=== PATIENT | male | born 1940 | race Caucasian/White ===

== ENCOUNTER → 2019-04-05 | Outpatient (CLI) | payer MEDICARE, BC ==
[~2019-04-05] MED LIST: ASPI-496 PO; ATOR20TA PO; CARV3.122 PO; CHOL200074 PO; FOLI-17 PO; L. A1CAP8 PO; LOSA25TA25 PO; MAGNESIUM OXIDE PO; MULT-717 PO; NIAC10002 PO; OMEG1CAP6 PO; OMEP-110 PO; TRAZ150T62 PO; VITA1TAB19 PO; VITA400C43 PO; VITAMIN B 12 PO
== END | disposition home or self-care (01) ==
LOC: CVU 09:46
PROVIDERS: ATTEND Internal Medicine Cardiovascular Disease
DX: I65.23 Occlusion and stenosis of bilateral carotid arteries (principal); E78.2 Mixed hyperlipidemia; I10 Essential (primary) hypertension; R09.89 Other specified symptoms and signs involving the circulatory and respiratory systems; Z87.891 Personal history of nicotine dependence
CPT/HCPCS: 93880

== ENCOUNTER 2020-09-01 07:30 | Inpatient (IN) | payer MEDICARE, BC ==
[2020-08-30 08:49] LABS: BASOPHILS % (AUTO) 1 % (0-1); EOSINOPHILS % (AUTO) 1 % (1-7); LYMPHOCYTES % (AUTO) 14 % (22-44); MEAN CORPUSCULAR HEMOGLOBIN 31.8 pg (27.5-34.5); MEAN PLATELET VOLUME 8.5 fL (7.4-10.4); MONOCYTES % (AUTO) 9 % (2-9); NEUTROPHILS % (AUTO) 76 % (42-75); PLATELET COUNT 243 x10^3/uL (130-400); RED BLOOD COUNT 4.47 x10^6/uL (4.38-5.82)
[2020-08-30 09:00] LABS: ALANINE AMINOTRANSFERASE 23 U/L (12-78); ALBUMIN 3.6 g/dL (3.4-5.0); ANION GAP 4 mmol/L (5-15); CHLORIDE 107 mmol/L (98-107); CREATININE 0.88 mg/dL (0.7-1.3)
[2020-08-30 09:03] LABS: ALKALINE PHOSPHATASE 73 U/L (45-117); BILIRUBIN,TOTAL 0.4 mg/dL (0.2-1.0); TOTAL PROTEIN 7.2 g/dL (6.4-8.2)
[~2020-09-01] VITALS: Ht 172.7 cm; Wt 87.0 kg
[~2020-09-01 07:30] MED LIST changes: +CYAN25009 PO; -FOLI-17 PO; +FOLI1TAB32 PO; +MAGN500C9 PO; +METO25TA91 PO
[2020-09-06] MEDS ORDERED: VANCOMYCIN 1,000 MG ONE (08:59)
[2020-09-06] MEDS ORDERED: GENTAMICIN 80 MG/2 ML ONE (08:59)
[2020-09-06] MEDS ORDERED: THROMBIN 20,000 UNIT VIAL TP ONE (08:59)
[2020-09-06] MEDS ORDERED: BUPIVACAINE/PF 0.5% ONE (08:59)
[2020-09-06] MEDS ORDERED: HEPARIN 1,000 UNITS/ML, 10ML ONE (08:59)
[2020-09-06] MEDS ORDERED: PROTAMINE SULFATE 10 MG/ML, 5ML ONE (08:59)
[2020-09-06] MEDS ORDERED: EPINEPHRINE 1 MG/ML, 1ML ONE (08:59)
[2020-09-06] MEDS ORDERED: CEFAZOLIN 1,000 MG ONE ×2 (09:08→11:03)
[2020-09-06] MEDS ORDERED: CHLORHEXIDINE 15 ML UDC ONE (09:57)
[2020-09-06] MEDS ORDERED: LACTATED RINGERS 1,000 ML IV SCH (10:00)
[2020-09-06] MEDS ORDERED: CHLORHEXIDINE 15 ML UDC PO ONE (10:00)
[2020-09-06] MEDS ORDERED: FENTANYL PF 250 MCG/5ML ONE (10:47)
[2020-09-06] MEDS ORDERED: PROPOFOL 10 MG/ML, 20ML ONE (11:03)
[2020-09-06] MEDS ORDERED: ONDANSETRON 2MG/ML, 2ML ONE (11:03)
[2020-09-06] MEDS ORDERED: ROCURONIUM 10 MG/ML,10ML ONE (11:03)
[2020-09-06] MEDS ORDERED: METOPROLOL 1 MG/ML, 5ML ONE (11:03)
[2020-09-06] MEDS ORDERED: DEXAMETHASONE 4 MG/ML, 1ML ONE (11:03)
[2020-09-06] MEDS ORDERED: MIDAZOLAM 1 MG/ML, 2ML ONE (11:18)
[2020-09-06] MEDS ORDERED: FENTANYL PF 100 MCG/2ML ONE (14:39)
[2020-09-06] MEDS ORDERED: OXYcodone 5 MG/5 ML ORAL.SOL UDC ONE ×2 (14:39→15:00)
[2020-09-06] MEDS: FENTANYL PF 100 MCG/2ML IV PRN ×2 (14:40→14:50)
[2020-09-06] MEDS ORDERED: KETOROLAC 30 MG/1 ML IV PRN (15:00)
[2020-09-06] MEDS ORDERED: hydrALAzine 20 MG/ML, 1ML IV PRN (15:00)
[2020-09-06] MEDS ORDERED: ACETAMINOPHEN 325 MG TABLET PO PRN (15:00)
[2020-09-06] MEDS ORDERED: MEPERIDINE/PF 25MG/0.5ML IVPush PRN (15:00)
[2020-09-06] MEDS ORDERED: DIAZEPAM 5 MG/ML, 2ML IVPush PRN (15:00)
[2020-09-06] MEDS ORDERED: ALBUTEROL SULFATE 2.5 MG/3 ML NPPB PRN (15:00)
[2020-09-06] MEDS: HYDROmorphone 2 MG/ML, 1ML IVPush PRN ×3 (15:00→15:46)
[2020-09-06] MEDS ORDERED: HYDROmorphone 1 MG/ML, 1ML INJ ONE ×2 (15:00→15:45)
[2020-09-06] MEDS ORDERED: LABETALOL 5MG/ML, 20ML IV PRN (15:00)
[2020-09-06] MEDS ORDERED: PROMETHAZINE 25 MG/ML, 1ML IV PRN (15:00)
[2020-09-06] MEDS ORDERED: OXYcodone 5 MG/5 ML ORAL.SOL UDC PO PRN (15:00)
[2020-09-06] MEDS ORDERED: KETOROLAC 30 MG/1 ML ONE (15:33)
[2020-09-06 16:30] VITALS: BP 129/67
[2020-09-06] MEDS ORDERED: ONDANSETRON 2MG/ML, 2ML IV PRN (17:30)
[2020-09-06] MEDS ORDERED: TRAZODONE 150MG TABLET PO PRN (17:30)
[2020-09-06] MEDS ORDERED: LACTATED RINGERS 500 ML IV PRN (17:30)
[2020-09-06] MEDS: LACTATED RINGERS 1,000 ML IV SCH (18:10)
[2020-09-06 19:05] VITALS: BP 128/62
[2020-09-06] MEDS: OXYcodone/APAP 5/325MG TABLET PO PRN ×2 (19:08→23:08)
[2020-09-06 20:16] VITALS: BP 125/71
[2020-09-06] MEDS: MAGNESIUM OXIDE 400 MG TABLET PO SCH (20:18)
[2020-09-06] MEDS: METOPROLOL SUCCINATE 25 MG TAB.ER.24H PO SCH (20:18)
[2020-09-06] MEDS: ATORVASTATIN 40 MG TABLET PO SCH (20:18)
[2020-09-06] MEDS: FOLIC ACID 1 MG TABLET PO SCH (20:20)
[2020-09-07 00:03] VITALS: BP 126/74
[2020-09-07] MEDS: OXYcodone/APAP 5/325MG TABLET PO PRN ×5 (03:09→22:06)
[2020-09-07] MEDS: LACTATED RINGERS 1,000 ML IV SCH ×3 (03:12→22:10)
[2020-09-07 03:28] VITALS: BP 116/69
[2020-09-07] MEDS: OMEPRAZOLE 20 MG CAPSULE.DR PO SCH (05:50)
[2020-09-07] MEDS: ASPIRIN 81 MG TABLET EC PO SCH (05:50)
[2020-09-07] MEDS: HEPARIN 5,000 UNITS/ML, 1ML SQ SCH ×3 (05:50→22:07)
[2020-09-07] MEDS ORDERED: METOPROLOL SUCCINATE 25 MG TAB.ER.24H PO SCH (06:00)
[2020-09-07 07:15] VITALS: BP 117/75
[2020-09-07] MEDS: MAGNESIUM OXIDE 400 MG TABLET PO SCH ×2 (08:03→22:06)
[2020-09-07] MEDS: CHOLECALCIFEROL 1,000 UNIT TABLET PO SCH (08:03)
[2020-09-07] MEDS: NIACIN 500 MG TABLET.ER PO SCH (08:03)
[2020-09-07] MEDS: LOSARTAN 25MG TABLET PO SCH (08:04)
[2020-09-07] MEDS: MULTIVITS,STRESS FORMULA 1 TABLET PO SCH (08:04)
[2020-09-07] MEDS: MULTIVITAMINS/MINERALS TABLET PO SCH (08:04)
[2020-09-07] MEDS: CYANOCOBALAMIN 1,000 MCG TABLET PO SCH (08:05)
[2020-09-07 14:20] VITALS: BP 102/61
[2020-09-07 18:45] VITALS: BP 109/62
[2020-09-07] MEDS: METOPROLOL SUCCINATE 25 MG TAB.ER.24H PO SCH (22:05)
[2020-09-07] MEDS: FOLIC ACID 1 MG TABLET PO SCH (22:06)
[2020-09-07] MEDS: ATORVASTATIN 40 MG TABLET PO SCH (22:06)
[2020-09-08 00:48] VITALS: BP 104/66
[2020-09-08] MEDS: OXYcodone/APAP 5/325MG TABLET PO PRN ×2 (04:33→09:39)
[2020-09-08] MEDS: ASPIRIN 81 MG TABLET EC PO SCH (07:17)
[2020-09-08] MEDS: OMEPRAZOLE 20 MG CAPSULE.DR PO SCH (07:17)
[2020-09-08] MEDS: HEPARIN 5,000 UNITS/ML, 1ML SQ SCH ×3 (07:17→21:38)
[2020-09-08 08:55] VITALS: BP 101/62
[2020-09-08] MEDS ORDERED: BISACODYL 10 MG SUPP PR PRN (09:30)
[2020-09-08] MEDS: LACTATED RINGERS 1,000 ML IV SCH ×2 (09:30→19:30)
[2020-09-08] MEDS ORDERED: POLYETHYLENE GLYCOL 17 GM PACKET PO PRN (09:30)
[2020-09-08] MEDS ORDERED: MAGNESIUM HYDROXIDE 8%, 30ML UDC PO PRN (09:30)
[2020-09-08] MEDS: MAGNESIUM OXIDE 400 MG TABLET PO SCH ×2 (09:37→21:36)
[2020-09-08] MEDS: MULTIVITAMINS/MINERALS TABLET PO SCH (09:37)
[2020-09-08] MEDS: CYANOCOBALAMIN 1,000 MCG TABLET PO SCH (09:37)
[2020-09-08] MEDS: CHOLECALCIFEROL 1,000 UNIT TABLET PO SCH (09:38)
[2020-09-08] MEDS: MULTIVITS,STRESS FORMULA 1 TABLET PO SCH (09:38)
[2020-09-08] MEDS: SENNA/DOCUSATE TABLET PO SCH ×2 (09:38→21:37)
[2020-09-08] MEDS: NIACIN 500 MG TABLET.ER PO SCH (09:39)
[2020-09-08] MEDS: LOSARTAN 25MG TABLET PO SCH (09:39)
[2020-09-08] MEDS: HYDROcodone/APAP 10/325 MG TABLET PO PRN ×3 (12:26→21:37)
[2020-09-08 14:25] VITALS: BP 94/56
[2020-09-08 19:41] VITALS: BP 119/66
[2020-09-08] MEDS: ATORVASTATIN 40 MG TABLET PO SCH (21:36)
[2020-09-08] MEDS: FOLIC ACID 1 MG TABLET PO SCH (21:36)
[2020-09-08] MEDS: DOCUSATE 100 MG CAPSULE PO SCH (21:36)
[2020-09-08] MEDS: METOPROLOL SUCCINATE 25 MG TAB.ER.24H PO SCH (21:36)
[2020-09-09 01:34] VITALS: BP 116/59
[2020-09-09] MEDS: HYDROcodone/APAP 10/325 MG TABLET PO PRN ×3 (02:54→13:46)
[2020-09-09] MEDS: LACTATED RINGERS 1,000 ML IV SCH (05:03)
[2020-09-09] MEDS: ASPIRIN 81 MG TABLET EC PO SCH (05:33)
[2020-09-09] MEDS: HEPARIN 5,000 UNITS/ML, 1ML SQ SCH ×2 (05:33→14:49)
[2020-09-09] MEDS: OMEPRAZOLE 20 MG CAPSULE.DR PO SCH (05:33)
[2020-09-09 07:02] VITALS: BP 129/73
[2020-09-09] MEDS: CYANOCOBALAMIN 1,000 MCG TABLET PO SCH (09:23)
[2020-09-09] MEDS: NIACIN 500 MG TABLET.ER PO SCH (09:28)
[2020-09-09] MEDS: SENNA/DOCUSATE TABLET PO SCH (09:28)
[2020-09-09] MEDS: DOCUSATE 100 MG CAPSULE PO SCH (09:28)
[2020-09-09] MEDS: LOSARTAN 25MG TABLET PO SCH (09:28)
[2020-09-09] MEDS: MULTIVITS,STRESS FORMULA 1 TABLET PO SCH (09:28)
[2020-09-09] MEDS: MAGNESIUM OXIDE 400 MG TABLET PO SCH (09:28)
[2020-09-09] MEDS: CHOLECALCIFEROL 1,000 UNIT TABLET PO SCH (09:29)
[2020-09-09] MEDS: MULTIVITAMINS/MINERALS TABLET PO SCH (09:29)
[2020-09-09 12:37] VITALS: BP 134/77
[2020-09-09] MEDS ORDERED: DOCU-131 PO (14:18)
[2020-09-09] MEDS ORDERED: OXYC1TAB14 PO (14:18)
== END 2020-09-09 15:15 | disposition home or self-care (01) | DRG 253 ==
LOC: ORIP 09-06 09:18 → 4NE 09-06 16:29
PROVIDERS: ADMIT Surgery; ATTEND Surgery
PROC: 04UK0JZ Supplement Right Femoral Artery with Synthetic Substitute, Open Approach (ICD-10-PCS; 2020-09-06)
PROC: 04CK0ZZ Extirpation of Matter from Right Femoral Artery, Open Approach (ICD-10-PCS; principal; 2020-09-06 11:00)
DX: I70.211 Atherosclerosis of native arteries of extremities with intermittent claudication, right leg (principal); I74.09 Other arterial embolism and thrombosis of abdominal aorta; Z20.822 Contact with and (suspected) exposure to COVID-19; I10 Essential (primary) hypertension
CPT/HCPCS: 36415; 71046; 80053; 85025; 85347; 86850; 86900; 88304; 88305; 88311; 93005; G0378; J0171; J0690; J1100; J1170; J1644; J1885; J2250; J2405; J2704; J2720; J3010; J3370; U0005; C1768; J1580; J7120; U0003